=== PATIENT | male | born 1975 | race Caucasian/White ===

== ENCOUNTER 2019-04-14 06:48 | Day surgery (SDC) | payer BC ==
[~2019-04-14] VITALS: Ht 175.3 cm; Wt 105.0 kg
[2019-04-14] MEDS ORDERED: PROTONIX 40MG T40 MG PO (06:58)
[2019-04-14] MEDS ORDERED: HYZAAR 12.5 MG-1 TAB PO (06:58)
[2019-04-14] MEDS ORDERED: CLARITIN 1010 MG/TAB PO (06:59)
[2019-04-14] MEDS ORDERED: ONE-A-DAY ESSE1 EACH PO (06:59)
[2019-04-14] MEDS ORDERED: FLONASE NASAL S16 GM NS (06:59)
[2019-04-14 07:30] VITALS: BP 126/79; PULSE 76; TEMP 97.8
[2019-04-14 08:10] VITALS: BP 114/72; PULSE 74; TEMP 97.1
--- NOTE | 2019-04-14 08:13 | NUR ---
Pt arrived to room from Endo procedure. Pt Alert/oriented x3. Pt walked to chair from stretcher x1 assist. Steady gait. Pt's in room. Pt denies any pain or nausea. Request water, jello and applesauce at this time. Report received from KEREN Duval.
[2019-04-14 08:25] VITALS: BP 119/87; PULSE 86
--- NOTE | 2019-04-14 08:25 | NUR ---
Pt tolerating food and drink. Denies any pain or nausea.
[2019-04-14 08:40] VITALS: BP 112/72; PULSE 77
[2019-04-14 08:55] VITALS: BP 106/65; PULSE 62
--- NOTE | 2019-04-14 09:30 | NUR ---
Discharge instructions, med list, and procedure information discussed with pt and pt's . Answered all questions to pt's satisfaction. Pt signed discharge paperwork.
--- NOTE | 2019-04-14 09:33 | NUR ---
Pt discharged from [facility]. Pt left unit via wheelchair to private vehicle driven by .
== END 2019-04-14 09:33 | disposition home or self-care (01) ==
LOC: SDCO 06:48
DX: K21.0 Gastro-esophageal reflux disease with esophagitis (principal); K44.9 Diaphragmatic hernia without obstruction or gangrene; Z88.0 Allergy status to penicillin; Z88.2 Allergy status to sulfonamides; K21.9 Gastro-esophageal reflux disease without esophagitis
CPT/HCPCS: J2250; J3010; J7030

== ENCOUNTER 2019-08-07 14:34 | Day surgery (SDC) | payer BC ==
[~2019-08-07] VITALS: Ht 175.3 cm; Wt 97.1 kg
[~2019-08-07 14:34] MED LIST: BLOOD PRESSURE; CLARITIN 1010 MG/TAB PO; FLONASE NASAL S16 GM NS; HYZAAR 12.5 MG-1 TAB PO; ONE-A-DAY ESSE1 EACH PO; PRILOSEC10 MG PO; PROTONIX 40MG T40 MG PO
[2019-08-07 14:51] VITALS: BP 142/99; PULSE 82; TEMP 98.9
--- NOTE | 2019-08-07 15:00 | NUR ---
Pt arrived to floor with admission staff. Got oriented to room. Pt IV started in LFA. IVF running. Assessment done, med rec completed, preop checklist completed, to follow down, Rojas transported pt down to OR. Will await return
[2019-08-07] MEDS ORDERED: NASONEX SPRAY17 GM NS (15:03)
[2019-08-07] MEDS ORDERED: COLACE 100100 MG/CAP PO (16:46)
[2019-08-07] MEDS ORDERED: MOTRIN 600600 MG/TAB PO (16:47)
[2019-08-07] MEDS ORDERED: NORCO 325 MG-51 TAB PO (16:48)
[2019-08-07 17:20] VITALS: BP 132/81; PULSE 78; TEMP 98.1
--- NOTE | 2019-08-07 17:20 | NUR ---
Pt arrived back to floor at this time via bed with PACU staff. [facility] has 3 lap sites closed with swiftset. Pt awake and alert, resting quietly in bed with at bedside. tolerating PO well, VSS, will continue to monitor.
[2019-08-07 17:35] VITALS: BP 126/86; PULSE 72; TEMP 98.1
[2019-08-07 17:50] VITALS: BP 140/85; PULSE 73; TEMP 98.1
[2019-08-07 18:05] VITALS: BP 124/74; PULSE 85; TEMP 98.1
[2019-08-07 18:35] VITALS: BP 119/77; PULSE 82; TEMP 98.1
--- NOTE | 2019-08-07 19:14 | NUR ---
Discharge teachign completed at this time. Packet reviewed, f/u appointment, scripts already filled by family, pt will leave when IV ATB completed, will call when ready, nightshift to walk out.
--- NOTE | 2019-08-07 19:50 | NUR ---
IV antibiotics completed. IV dc'd from left wrist. Patient dressed and was escorted to the door and left via car with his driving. Patient ambulated to the door. Gait steady.
== END 2019-08-07 19:50 | disposition home or self-care (01) ==
LOC: MEDICAL 14:34 → SDCO 14:34
DX: K35.80 Unspecified acute appendicitis (principal); K40.20 Bilateral inguinal hernia, without obstruction or gangrene, not specified as recurrent; K42.9 Umbilical hernia without obstruction or gangrene; Z88.0 Allergy status to penicillin; Z88.2 Allergy status to sulfonamides; Z79.899 Other long term (current) drug therapy; I10 Essential (primary) hypertension; K21.9 Gastro-esophageal reflux disease without esophagitis
CPT/HCPCS: OP; J0744; J1100; J1885; J2405; J2704; J3010; J7120; Q9967